=== PATIENT | male | born 1985 | race Caucasian/White ===

== ENCOUNTER 2021-11-07 13:48 | Inpatient (IN) | payer BC, MEDICAID, SELFPAY ==
[2021-11-07 13:48] VITALS: BMI 22.4
[2021-11-07 14:00] VITALS: BP 129/73; PULSE 95; RESP 20; TEMP 36.6; O2SAT 100
[2021-11-07 15:14] VITALS: RESP 16; O2SAT 98
[2021-11-07] MEDS: CLONazepam 1 mg Tablet 2 MG PO ×2 (15:14→22:17)
[2021-11-07] MEDS: oxyCODONE 5 mg IR Tab/Cap 10 MG PO ×2 (15:14→22:17)
[2021-11-07] MEDS: nicotine 2 mg Gum BUCCAL (15:30)
--- NOTE | 2021-11-07 16:18 | PC.NURSE ---
ADMISSION PATIENT CAME TO UNIT FROM [facility]. ADMITTIED FOR INCREASED SI AND DEPRESSION. DENIES CURRENT SI/HI OR AVH. STATES HE JUST FELT HE HAD NEEDED HELP. 1 PREVIOUS ATTEMPT IN 2011. HX DEPRESSION, SARCOIDOSIS, BORDERLINE DIABETIC, FYBROMYAGIA, BIPOLAR. CALM, COOPERATIVE, A&OX4.
[2021-11-07] MEDS: lurasidone 20 mg Tablet 40 MG PO ×2 (18:39→21:45)
[2021-11-07] MEDS: metformin 500 mg Tablet PO (18:40)
[2021-11-07 21:32] VITALS: BP 129/73; PULSE 95; RESP 16; TEMP 36.6; O2SAT 98
[2021-11-07 22:17] VITALS: RESP 18; O2SAT 98
[2021-11-08 05:56] VITALS: RESP 17; O2SAT 97
[2021-11-08] MEDS: oxyCODONE 5 mg IR Tab/Cap 10 MG PO ×3 (05:56→19:06)
[2021-11-08 06:00] VITALS: BP 134/87; PULSE 88; RESP 15; TEMP 37.1; O2SAT 97
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
[2021-11-08] MEDS: citalopram 20 mg Tablet 40 MG PO (09:42)
[2021-11-08] MEDS: nicotine 2 mg Gum BUCCAL (09:42)
[2021-11-08] MEDS: metformin 500 mg Tablet PO ×2 (09:43→18:23)
[2021-11-08] MEDS: atomoxetine 40 mg Capsule PO (09:43)
[2021-11-08] MEDS: CLONazepam 1 mg Tablet 2 MG PO ×3 (09:51→21:18)
[2021-11-08 11:48] VITALS: RESP 18
[2021-11-08] MEDS: ARIPiprazole 10 mg Tablet PO (12:52)
--- NOTE | 2021-11-08 13:11 | NPU.GN ---
[facility] Unit Group Topic:Wheel of Positive thoughts versus Negative Thoughts General Mood of Group: Toi did attend and participate in group today. He was social and provided feedback to others in group today. His hygiene was good.
[2021-11-08 14:00] VITALS: BP 112/65; PULSE 74; RESP 20; TEMP 36.1; O2SAT 96
[2021-11-08] MEDS: lurasidone 20 mg Tablet 40 MG PO (18:24)
[2021-11-08 19:06] VITALS: RESP 18; O2SAT 96
[2021-11-08] MEDS: ondansetron 4 MG Tablet PO (21:18)
[2021-11-08 21:22] VITALS: BP 132/78; PULSE 81; RESP 16; TEMP 36.7; O2SAT 98
--- NOTE | 2021-11-09 01:19 | PC.NURSE ---
Patient requested clonazepam for anxiety and zofran for nausea. Both given and they were effective.
[2021-11-09] MEDS: oxyCODONE 5 mg IR Tab/Cap 10 MG PO ×4 (02:37→19:50)
--- NOTE | 2021-11-09 03:49 | PC.NURSE ---
Patient received pain medication for hs back and legs. It was effective. Patient quietly resting.
[2021-11-09 05:31] VITALS: BP 113/68; PULSE 69; RESP 17; TEMP 36.8; O2SAT 92
[2021-11-09] MEDS: CLONazepam 1 mg Tablet 2 MG PO ×3 (06:22→19:50)
[2021-11-09] MEDS: nicotine 2 mg Gum BUCCAL ×3 (06:23→19:59)
[2021-11-09] MEDS: metformin 500 mg Tablet PO ×2 (09:06→18:32)
[2021-11-09] MEDS: citalopram 20 mg Tablet 40 MG PO (09:06)
[2021-11-09 09:07] VITALS: RESP 16
[2021-11-09] MEDS: ARIPiprazole 10 mg Tablet PO (09:07)
[2021-11-09] MEDS: atomoxetine 40 mg Capsule PO (09:07)
--- NOTE | 2021-11-09 10:50 | NPU.GN ---
[facility] Unit Group Topic:is Plan, Triggers, Coping mechanisms General Mood of Group: Toi did attend and participate in group today he was social with others. He also provided group feedback on how to identify triggers, what coping skills he uses and may work for others. His hygiene was good and mental state was good as well.
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
[2021-11-09 14:00] VITALS: BP 118/74; PULSE 68; RESP 17; TEMP 36.9; O2SAT 98
--- NOTE | 2021-11-09 14:04 | NPU.GN ---
[facility] Unit 12:30-13:30 Group Group Topic: Negative and Positive Attributes verses Self Imagery General Mood of Group: Toi did attend and participate in group. He was very positive during this group activity. He seems mentally and emotionally stable.
[2021-11-09 14:20] VITALS: RESP 16; O2SAT 98
[2021-11-09 19:50] VITALS: RESP 18
[2021-11-09 20:57] VITALS: BP 106/63; PULSE 74; RESP 18; O2SAT 95
[2021-11-10] MEDS: hyDROXYzine 25 mg Capsule 50 MG PO (00:04)
[2021-11-10] MEDS: acetaminophen 325 mg Tablet 650 MG PO (00:05)
[2021-11-10 04:20] VITALS: RESP 18
[2021-11-10] MEDS: oxyCODONE 5 mg IR Tab/Cap 10 MG PO ×3 (04:20→15:04)
--- NOTE | 2021-11-10 04:58 | PC.NURSE ---
Patient is in pain in his lower back and legs. Oxy 10 mg given. Medication was effective.
[2021-11-10 05:40] VITALS: BP 102/56; PULSE 56; RESP 17; TEMP 36.4; O2SAT 95
[2021-11-10] MEDS: nicotine 2 mg Gum BUCCAL ×2 (05:50→07:56)
[2021-11-10] MEDS: citalopram 20 mg Tablet 40 MG PO (07:54)
[2021-11-10] MEDS: CLONazepam 1 mg Tablet 2 MG PO ×2 (07:54→13:26)
[2021-11-10] MEDS: metformin 500 mg Tablet PO (07:55)
[2021-11-10] MEDS: atomoxetine 40 mg Capsule 80 MG PO (07:55)
[2021-11-10] MEDS: ARIPiprazole 10 mg Tablet PO (07:56)
[2021-11-10 09:23] VITALS: RESP 16; O2SAT 98
[2021-11-10] MEDS: nicotine 21 mg Patch 1 PATCH TRANSDERMA (09:23)
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
[2021-11-10 11:34] VITALS: BP 113/86; PULSE 66; RESP 16; O2SAT 98
[2021-11-10 15:04] VITALS: RESP 16; O2SAT 98
== END 2021-11-10 17:19 | disposition home or self-care (01) | DRG 881 ==
PROVIDERS: Admitting Provider Psychiatry & Neurology Psychiatry; Visit Provider Psychiatry & Neurology Psychiatry
DX: F32.A Depression, unspecified (principal); F15.20 Other stimulant dependence, uncomplicated; F41.9 Anxiety disorder, unspecified; Z91.14 Patient's other noncompliance with medication regimen; F17.210 Nicotine dependence, cigarettes, uncomplicated; Z59.01 Sheltered homelessness; D86.9 Sarcoidosis, unspecified; M79.7 Fibromyalgia; R73.03 Prediabetes; F10.21 Alcohol dependence, in remission; F90.9 Attention-deficit hyperactivity disorder, unspecified type; Z79.891 Long term (current) use of opiate analgesic
CPT/HCPCS: 97150; 97165; Q0162